=== PATIENT | male | born 1965 | race Caucasian/White ===

== ENCOUNTER 2016-07-17 23:23 | Emergency (ER) | payer OTHER ==
[2016-07-18] MEDS ORDERED: PROPARACAINE 0.5% OPHTH DROPS 15 ML ONE (00:06)
[2016-07-18] MEDS ORDERED: PROPARACAINE 0.5% OPHTH DROPS 15 ML LEFTEYE STA (00:06)
[2016-07-18] MEDS ORDERED: HYDROcod/ACET 5/325 Prepack 6 PO STA (01:51)
[2016-07-18] MEDS ORDERED: POLYMYXIN B/TRIMETH OPHTH DROPS LEFTEYE STA (01:51)
[2016-07-18] MEDS ORDERED: HYDROcod/ACET 5/325 Prepack 6 PO ONE (02:00)
[2016-07-18] MEDS ORDERED: POLYMYXIN B/TRIMETH OPHTH DROPS ONE (02:00)
== END 2016-07-18 02:35 | disposition home or self-care (01) ==
DX: S05.02XA Injury of conjunctiva and corneal abrasion without foreign body, left eye, initial encounter (principal); X58.XXXA Exposure to other specified factors, initial encounter
CPT/HCPCS: 99283; A9270; J3490